=== PATIENT | male | born 1975 | race Caucasian/White ===

== ENCOUNTER 2021-02-27 23:20 | Emergency (ER) | payer SELFPAY ==
[2021-02-27] MEDS ORDERED: Ondansetron 4 MG/2 ML SDV IVPUSH ONE (23:40)
[2021-02-27] MEDS ORDERED: Sodium Chloride 0.9% 10 ML Syringe FLUSH PRN (23:40)
[2021-02-27] MEDS ORDERED: Ketorolac 30 MG/ML SDV IVPUSH ONE (23:40)
--- NOTE | 2021-02-27 23:51 | EDM.PDOC ---
ED HPI GENERAL MEDICAL PROBLEM - General Chief Complaint: Genitourinary Problem Stated Complaint: Right flank pain Time Seen by Provider: 02/27/21 23:35 Source of Information: Reports: Patient History Limitations: Reports: No Limitations - History of Present Illness INITIAL COMMENTS - FREE TEXT/NARRATIVE: Patient presents to the ED with right flank pain for the last couple of days that is progressively worsening. 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 He states he has not been eating or drinking well. Has a remote history of kidney stones about 5 years ago, never needed intervention for them. States today at about 10 am there was increase in his pain in the right flank area. he tried to drink more fluids as he is almost home to [facility]. He states the pain became unbearable and he needed to come in to be seen. Patient did tno take anything for them. Has no ride home from here. did eat at 18:00 without any change in the pain, no vomiting or diarrhea Onset: Gradual Duration: Day(s): (2-3) Location: Reports: Abdomen Quality: Reports: Sharp, Stabbing Severity: Moderate Improves with: Reports: None Worsens with: Reports: None Right flank Pain Score (Numeric/FACES): 8 - Related Data Allergies Allergy/AdvReac Type Severity Reaction Status Date / Time No Known Allergies Allergy Verified 02/27/21 23:36 Home Meds: Home Meds Hydrocodone/Acetaminophen [Hydrocodone-Acetamin 5-325 mg] 1 each PO Q4HR PRN 5 Days #20 tablet 02/28/21 [Rx] Levofloxacin [Levaquin] 500 mg PO DAILY #5 tablet 02/28/21 [Rx] Tamsulosin HCl [Flomax] 0.4 mg PO DAILY 4 Days #4 cap.er.24h 02/28/21 [Rx] Past Medical History Genitourinary History: Reports: Renal Calculus Social & Family History - Tobacco Use Tobacco Use Status *Q: Never Tobacco User Tobacco Use Within Last Twelve Months: No Used Tobacco, but Quit: No Smoking Cessation Information Provided To Patient: No - Alcohol Use Alcohol Use History: No Alcohol Use in Last Twelve Months: No Alcohol Use Frequency: Rarely, Socially - Recreational Drug Use Recreational Drug Use: No Drug Use in Last 12 Months: No ED ROS GENERAL - Review of Systems Review Of Systems: See Below Constitutional: Reports: No Symptoms. Denies: Weakness, Fatigue HEENT: Reports: No Symptoms. Denies: Eye Pain, Nosebleed, Throat Swelling Respiratory: Reports: No Symptoms. Denies: Shortness of Breath, Wheezing, Cough Cardiovascular: Reports: No Symptoms. Denies: Chest Pain Endocrine: Reports: No Symptoms GI/Abdominal: Reports: Abdominal Pain. Denies: Constipation, Diarrhea : Reports: Flank Pain. Denies: Frequency, Urgency, Urinary Retention Musculoskeletal: Reports: No Symptoms Skin: Reports: No Symptoms Psychiatric: Reports: No Symptoms ED EXAM, RENAL/ - Physical Exam Exam: See Below Exam Limited By: No Limitations General Appearance: Mild Distress Eye Exam: Bilateral Eye: EOMI, Normal Inspection, PERRL (constricted pupils) Ears: Normal External Exam Nose: Normal Inspection, Normal Mucosa Throat/Mouth: Normal Inspection, Normal Lips, Normal Teeth, Normal Voice Head: Atraumatic, Normocephalic Neck: Normal Inspection Respiratory/Chest: No Respiratory Distress, Lungs Clear, Normal Breath Sounds, No Accessory Muscle Use, Chest Non-Tender Cardiovascular: Normal Peripheral Pulses, Regular Rate, Rhythm, No Murmur GI/Abdominal: Normal Bowel Sounds, Soft, Tender (right sided, minimal, no rebound) Back Exam: Normal Inspection, Full Range of Motion. No: CVA Tenderness (L), CVA Tenderness (R), Decreased Range of Motion Extremities: Normal Inspection, Normal Range of Motion, Non-Tender Neurological: Alert, Oriented, CN II-XII Intact Psychiatric: Normal Affect Course - Vital Signs Last Recorded V/S: Last Vital Signs Temp 36.3 C 02/27/21 23:20 Pulse 62 02/27/21 23:20 Resp 16 02/27/21 23:20 BP 144/99 H 02/27/21 23:20 Pulse Ox 96 02/27/21 23:20 - Orders/Labs/Meds Orders: Active Orders 24 hr Category Date Time Status Abdomen Pelvis w Cont [CT] Stat Exams 02/28/21 00:46 Ordered Abdomen wo Cont [CT] Stat Exams 02/27/21 23:41 Ordered Acetaminophen/HYDROcodone [Take Home: Acetam/HYDROcodon Med 02/28/21 02:01 Once 325-5 MG, 5 Pack] 1 packet PO ONETIME ONE Sodium Chloride 0.9% [Normal Saline] 1,000 ml Med 02/28/21 00:30 Ordered IV ASDIRECTED Sodium Chloride 0.9% [Normal Saline] 1,000 ml Med 02/28/21 00:30 Ordered IV ASDIRECTED Sodium Chloride 0.9% [Saline Flush] Med 02/27/21 23:40 Ordered 10 ml FLUSH ASDIRECTED PRN Peripheral IV Insertion Adult [OM.PC] Routine Oth 02/27/21 23:40 Ordered Medication Orders Sodium Chloride (Normal Saline) 1,000 mls @ 1,000 mls/hr IV ASDIRECTED DANIEL Last Admin: 02/27/21 23:50 Dose: 1,000 mls/hr Documented by: SAW Sodium Chloride (Normal Saline) 1,000 mls @ 1,000 mls/hr IV ASDIRECTED DANIEL Last Admin: 02/28/21 00:40 Dose: 1,000 mls/hr Documented by: SAW Sodium Chloride (Sodium Chloride 0.9% 10 Ml Syringe) 10 ml FLUSH ASDIRECTED PRN PRN Reason: Keep Vein Open Labs: Laboratory Tests 02/27/21 02/27/21 02/27/21 Range/Units 23:48 23:48 23:48 WBC 15.6 H (4.0-10.0) x10^3/uL RBC 4.96 (4.5-6.0) x10^6/uL Hgb 15.4 (14.0-18.0) g/dL Hct 42.0 (40.0-52.0) % MCV 84.7 (78.0-93.0) fL MCH 31.0 (26.0-32.0) pg MCHC 36.7 H (32.0-36.0) g/dL RDW Coeff of [place] 14.0 (10.0-15.0) % Plt Count 347 (130-400) x10^3/uL Neut % (Auto) 43.1 L (50.0-80.0) % Lymph % (Auto) 44.8 (25.0-50.0) % [place] % (Auto) 9.7 (2.0-11.0) % Eos % (Auto) 2.0 (0.0-4.0) % Baso % (Auto) 0.4 (0.2-1.2) % Sodium 143 (136-145) mmol/L Potassium 3.0 L (3.5-5.1) mmol/L Chloride 106 (98-107) mmol/L Carbon Dioxide 26 (21-32) mmol/L Anion Gap 14.0 (5-15) mmol/L BUN 13 (7-18) mg/dL Creatinine 1.1 (0.70-1.30) mg/dL Est Cr Clr Drug Dosing 100.29 mL/min Estimated GFR (MDRD) > 60 Glucose 125 H (70-99) mg/dL Lactic Acid 2.5 H* (0.4-2.0) mmol/L Calcium 8.3 L (8.5-10.1) mg/dL Corrected Calcium 8.5 (8.5-10.1) mg/dL Total Bilirubin 1.2 H (0.2-1.0) mg/dL AST 38 H (15-37) U/L ALT 29 (16-63) U/L Alkaline Phosphatase 57 (46-116) U/L C-Reactive Protein < 0.2 (<=0.9) mg/dL Total Protein 7.5 (6.4-8.2) g/dL Albumin 3.8 (3.4-5.0) g/dL Globulin 3.7 Albumin/Globulin Ratio 1.03 Urine Color (YELLOW) Urine Appearance (CLEAR) Urine pH (5.0-8.0) Ur Specific [place] Urine Protein (NEGATIVE) mg/dL Urine Glucose (UA) (NEGATIVE) mg/dL Urine Ketones (NEGATIVE) mg/dL Urine Occult Blood (NEGATIVE) Urine Nitrite (NEGATIVE) Urine Bilirubin (NEGATIVE) Urine Urobilinogen (0.2) EU/dL Ur Leukocyte Esterase (NEGATIVE) U Hyaline Cast (Auto) Urine RBC (NOT SEEN) /HPF Urine WBC (NOT SEEN) /HPF Ur Squamous Epith Cells (NOT SEEN) /HPF Urine Bacteria (NOT SEEN) /HPF Urine Mucus (NOT SEEN) /LPF 02/28/21 Range/Units 00:35 WBC (4.0-10.0) x10^3/uL RBC (4.5-6.0) x10^6/uL Hgb (14.0-18.0) g/dL Hct (40.0-52.0) % MCV (78.0-93.0) fL MCH (26.0-32.0) pg MCHC (32.0-36.0) g/dL RDW Coeff of [place] (10.0-15.0) % Plt Count (130-400) x10^3/uL Neut % (Auto) (50.0-80.0) % Lymph % (Auto) (25.0-50.0) % [place] % (Auto) (2.0-11.0) % Eos % (Auto) (0.0-4.0) % Baso % (Auto) (0.2-1.2) % Sodium (136-145) mmol/L Potassium (3.5-5.1) mmol/L Chloride (98-107) mmol/L Carbon Dioxide (21-32) mmol/L Anion Gap (5-15) mmol/L BUN (7-18) mg/dL Creatinine (0.70-1.30) mg/dL Est Cr Clr Drug Dosing mL/min Estimated GFR (MDRD) Glucose (70-99) mg/dL Lactic Acid (0.4-2.0) mmol/L Calcium (8.5-10.1) mg/dL Corrected Calcium (8.5-10.1) mg/dL Total Bilirubin (0.2-1.0) mg/dL AST (15-37) U/L ALT (16-63) U/L Alkaline Phosphatase (46-116) U/L C-Reactive Protein (<=0.9) mg/dL Total Protein (6.4-8.2) g/dL Albumin (3.4-5.0) g/dL Globulin Albumin/Globulin Ratio Urine Color Dark yellow H (YELLOW) Urine Appearance Slightly cloudy H (CLEAR) Urine pH 6.0 (5.0-8.0) Ur Specific [place] >=1.030 Urine Protein 30 H (NEGATIVE) mg/dL Urine Glucose (UA) Negative (NEGATIVE) mg/dL Urine Ketones Negative (NEGATIVE) mg/dL Urine Occult Blood Large H (NEGATIVE) Urine Nitrite Negative (NEGATIVE) Urine Bilirubin Negative (NEGATIVE) Urine Urobilinogen 1.0 (0.2) EU/dL Ur Leukocyte Esterase Negative (NEGATIVE) U Hyaline Cast (Auto) Rare Urine RBC 75-100 H (NOT SEEN) /HPF Urine WBC 0-5 (NOT SEEN) /HPF Ur Squamous Epith Cells Few H (NOT SEEN) /HPF Urine Bacteria Not seen (NOT SEEN) /HPF Urine Mucus Many H (NOT SEEN) /LPF Meds: Medications Generic Name Dose Route Start Last Admin Trade Name Rylan PRN Reason Stop Dose Admin Sodium Chloride 1,000 mls @ 1,000 mls/hr 02/28/21 00:30 02/27/21 23:50 Normal Saline IV 1,000 mls/hr ASDIRECTED DANIEL Administration Sodium Chloride 1,000 mls @ 1,000 mls/hr 02/28/21 00:30 02/28/21 00:40 Normal Saline IV 1,000 mls/hr ASDIRECTED DANIEL Administration Sodium Chloride 10 ml 02/27/21 23:40 Sodium Chloride 0.9% 10 Ml Syringe FLUSH ASDIRECTED PRN Keep Vein Open Discontinued Medications Generic Name Dose Route Start Last Admin Trade Name Rylan PRN Reason Stop Dose Admin Ceftriaxone Sodium 1 gm 02/28/21 01:25 02/28/21 01:51 Ceftriaxone 1 Gm Vial IVPUSH 02/28/21 01:26 1 gm STAT ONE Administration Iopamidol 100 ml 02/28/21 00:52 02/28/21 01:22 Iopamidol 612 Mg/Ml 100 Ml Bottle IVPUSH 02/28/21 00:53 100 ml ONETIME ONE Administration Ketorolac Tromethamine 30 mg 02/27/21 23:40 02/27/21 23:54 Ketorolac 30 Mg/Ml Sdv IVPUSH 02/27/21 23:41 30 mg ONETIME ONE Administration Ondansetron HCl 4 mg 02/27/21 23:40 02/27/21 23:52 Ondansetron 4 Mg/2 Ml Sdv IVPUSH 02/27/21 23:41 4 mg ONETIME ONE Administration Potassium Chloride 40 meq 02/28/21 00:25 02/28/21 00:47 Potassium Chloride 20 Meq Tab.Er PO 02/28/21 00:26 40 meq ONETIME ONE Administration Potassium Chloride Confirm 02/28/21 00:57 02/28/21 00:57 Potassium Chloride 20 Meq Tab.Er Administered 02/28/21 00:58 Not Given Dose 20 meq .ROUTE .STK-MED ONE Tamsulosin HCl 0.4 mg 02/28/21 01:26 02/28/21 01:55 Tamsulosin 0.4 Mg Cap.Er PO 02/28/21 01:27 0.4 mg ONETIME ONE Administration - Radiology Interpretation Free Text/Narrative:: ct non contrast with obstructing 6x3x6 mm stone in the proximal right ureter with hydronephrosis and hydroureter. tiny rigth renal stones, 3.5 cm right renal cyst. left renal stone. interpreted by radiology contrast study mirrors non contrast. 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 Will start with iv fluid, toradol, zofran and check labs and urine. Ct renal stone protocol, PDMP no prescription fills in the last 3 years. 02/28/21 00:27 Patient has an elevated lactic acid, requires IV hydration. second liter bolus ordered. Given potassium 40 meq po. elevated white blood cell count 02/28/21 00:50 Patient is feeling better, right renal mass, no hydronephrosis noted several small stones in the kidneys 02/28/21 01:27 Leukocytosis with normal crp, and elevated lactic. Concern for obstructing stone. No signs of infection in the urine at this time. Rocephin 1 gram IVP, flomax 0.4 mg PO. Discussed need for urology close follow up with the patient. send home with take home pack of hydrocodone and script. Undertands the need to follow up with urology 02/28/21 02:02 Departure - Departure Time of Disposition: 02:03 Disposition: Home, Self-Care 01 Clinical Impression: Hypokalemia, Leukocytosis, Kidney stone - Discharge Information *PRESCRIPTION DRUG MONITORING PROGRAM REVIEWED*: Yes *COPY OF PRESCRIPTION DRUG MONITORING REPORT IN PATIENT DANA: Not Applicable Prescriptions: Tamsulosin HCl [Flomax] 0.4 mg PO DAILY 4 Days #4 cap.er.24h Hydrocodone/Acetaminophen [Hydrocodone-Acetamin 5-325 mg] 1 each PO Q4HR PRN 5 Days #20 tablet PRN Reason: Abdominal Pain Levofloxacin [Levaquin] 500 mg PO DAILY #5 tablet Instructions: Low-Purine Eating Plan, Hypokalemia, Kidney Stones, [id number], Potassium Content of Foods Referrals: PCP,None [Primary Care Provider] - Jamshid Retana MD [Ordering Only Provider] - Easton Tabares MD [Ordering Only Provider] - Oscar Dumont MD [Ordering Only Provider] - Forms: ED Department Discharge Additional Instructions: You have an elevated white blood cell count and were treated with Rocephin in the ED. You are given a prescription for antibiotics to start tomorrow. You were given flomax in the ED. This should be taken daily. This helps to open up the ureter and allow the stone to pass. Your stone may not pass and you can become very ill from this. Prompt follow up with urology is recommended for stent placement. you were given the name of two physicians in [place] and one in [place]. It is important that you present to a facility with urology coverage if you are worsening with pain and or fever. You stone is in the right ureter, near the right kidney and has quite a way to travel. The stone is 6x3x6 mm. You also have a right kidney cyst. This is 3.5 cm in size and appears benign. Your potassium is low, you were given a supplement in the ED, increase potassium in your diet and recheck this next week. Your level was 3.0 and should be at least 3.5 You can use motrin/ibuprofen for mild pain, make sure you hydrate well. You can use hydrocodone 1-2 tablets every 4-6 hours as needed. You are given #5 tonight and a prescription for more if needed Sepsis Event Note (ED) - Focused Exam Vital Signs: Vital Signs Temp Pulse Resp BP Pulse Ox 02/27/21 23:20 36.3 C 62 16 144/99 H 96 - My Orders Last 24 Hours: My Active Orders 02/27/21 23:40 Sodium Chloride 0.9% [Saline Flush] 10 ml FLUSH ASDIRECTED PRN Peripheral IV Insertion Adult [OM.PC] Routine 02/27/21 23:41 Abdomen wo Cont [CT] Stat 02/28/21 00:30 Sodium Chloride 0.9% [Normal Saline] 1,000 ml IV ASDIRECTED Sodium Chloride 0.9% [Normal Saline] 1,000 ml IV ASDIRECTED 02/28/21 00:46 Abdomen Pelvis w Cont [CT] Stat 02/28/21 02:01 Acetaminophen/HYDROcodone [Take Home: Acetam/HYDROcodon 325-5 MG, 5 Pack] 1 packet PO ONETIME ONE - Assessment/Plan Last 24 Hours: My Active Orders 02/27/21 23:40 Sodium Chloride 0.9% [Saline Flush] 10 ml FLUSH ASDIRECTED PRN Peripheral IV Insertion Adult [OM.PC] Routine 02/27/21 23:41 Abdomen wo Cont [CT] Stat 02/28/21 00:30 Sodium Chloride 0.9% [Normal Saline] 1,000 ml IV ASDIRECTED Sodium Chloride 0.9% [Normal Saline] 1,000 ml IV ASDIRECTED 02/28/21 00:46 Abdomen Pelvis w Cont [CT] Stat 02/28/21 02:01 Acetaminophen/HYDROcodone [Take Home: Acetam/HYDROcodon 325-5 MG, 5 Pack] 1 packet PO ONETIME ONE
[2021-02-28 00:21] LABS: CHLORIDE,CL 106 mmol/L (98-107); SODIUM,NA 143 mmol/L (136-145)
[2021-02-28] MEDS ORDERED: Potassium Chloride 20 MEQ Tab.ER PO ONE (00:25)
[2021-02-28] MEDS ORDERED: Sodium Chloride 0.9% 1,000 ML IV SCH ×2 (00:30)
[2021-02-28] MEDS ORDERED: Iopamidol 612 MG/ML 100 ML Bottle IVPUSH ONE (00:52)
[2021-02-28] MEDS ORDERED: Potassium Chloride 20 MEQ Tab.ER ONE (00:57)
[2021-02-28] MEDS ORDERED: cefTRIAXone 1 GM Vial IVPUSH ONE (01:25)
[2021-02-28] MEDS ORDERED: Tamsulosin 0.4 MG Cap.ER PO ONE (01:26)
[2021-02-28] MEDS ORDERED: Take Home: Acetaminophen/HYDROcodone 325-5 MG, 5 Tab Pack PO ONE (02:01)
--- NOTE | 2021-02-28 08:35 | CT ---
[id number] CT/CT Abdomen Pelvis W IV EXAM: CT Abdomen Pelvis W IV CLINICAL DATA: RIGHT URETERAL CALCULUS COMPARISON: CORRELATION IS MADE WITH THE EARLIER CAT SCAN TODAY FINDINGS: An obstructing 6 mm radiopaque proximal right ureteral calculus is unchanged in position since earlier today The current exam is with IV contrast The previous exam was without IV contrast Other smaller calculi of both kidneys are seen There is bilateral renal function There is mild right-sided hydronephrosis There is a moderate size upper pole right renal cyst The liver and spleen, aorta, adrenals, and pancreas are unremarkable. The gallbladder is not distended The appendix is also normal The pelvis shows no mass or adenopathy IMPRESSION: NO CHANGE IN POSITION OF 6 MM OBSTRUCTING PROXIMAL RIGHT URETERAL CALCULUS Raul Mccain MD 02/28/21 0834 Thank you for allowing us to participate in the care of your patient.
--- NOTE | 2021-02-28 08:37 | CT ---
[id number] CT/CT Abdomen Pelvis WO IV Exam: CT Abdomen Pelvis WO IV Clinical Data: RIGHT FLANK PAIN COMPARISON: NO PREVIOUS SIMILAR EXAM IS AVAILABLE FINDINGS: A radiopaque 6 mm proximal right ureteral calculus is seen There is no significant right-sided hydronephrosis Tiny punctate calculi of both kidneys are identified There is an upper pole right renal mass A follow-up contrast CT later showed this to be a renal cyst The liver and spleen, aorta, adrenals, gallbladder, and pancreas are unremarkable The pelvis shows no mass or adenopathy The appendix also is unremarkable IMPRESSION: RADIOPAQUE 6 MM OBSTRUCTING PROXIMAL RIGHT URETERAL CALCULUS Raul Mccain MD 02/28/21 0836 Thank you for allowing us to participate in the care of your patient.
== END 2021-02-28 02:21 | disposition home or self-care (01) ==
LOC: VM.ED 23:20
DX: N13.2 Hydronephrosis with renal and ureteral calculous obstruction (principal); E87.6 Hypokalemia; D72.829 Elevated white blood cell count, unspecified
CPT/HCPCS: 74150; 74177; 80053; 81001; 83605; 85025; 86140; 96374; 96375; 99284; 99284-25; A9270-GY; J0696; J1885; J2405; J7030; Q9967